=== PATIENT | female | born 1960 | race African-American/Black ===

== ENCOUNTER 2019-04-01 12:11 | Emergency (ER) | payer BC ==
[~2019-04-01] VITALS: Ht 172.7 cm; Wt 87.5 kg
[2019-04-01] MEDS ORDERED: NAPROSYN500 MG PO (13:21)
[2019-04-01 13:44] VITALS: BP 128/74
== END 2019-04-01 13:45 | disposition home or self-care (01) ==
LOC: ER 12:11
DX: S61.412A Laceration without foreign body of left hand, initial encounter (principal); S43.492A Other sprain of left shoulder joint, initial encounter; M25.522 Pain in left elbow; S80.212A Abrasion, left knee, initial encounter; I10 Essential (primary) hypertension; Z90.710 Acquired absence of both cervix and uterus; Z91.040 Latex allergy status; W01.0XXA Fall on same level from slipping, tripping and stumbling without subsequent striking against object, initial encounter; Y93.89 Activity, other specified; Y92.89 Other specified places as the place of occurrence of the external cause; Y99.8 Other external cause status